=== PATIENT | male | born 1990 | race Hispanic/Latino ===

== ENCOUNTER 2016-12-22 18:50 | Emergency (ER) | payer BC ==
[2016-12-22 19:16] VITALS: BP 135/66; PULSE 74; RESP 18; TEMP 98.2; O2SAT 99
--- NOTE | 2016-12-22 20:12 | ED PDOC ---
HPI: Back Time Seen by Provider: 12/22/16 20:08 Chief Complaint (Nursing): Back Pain Chief Complaint (Provider): lower back pain History Per: Patient History/Exam Limitations: no limitations Additional Complaint(s): 26yo M in ED with hx of L5-L6 herniated disc states acutely developed pain to lower back without injury or heavy lifting. denies : numbness/tingling in LE/UE , abd pain, nausea vomiting fever chills, urinary or BM incontinence or saddle anaesthesia. states pain is sharp and 10/ Past Medical History Reviewed: Historical Data, Nursing Documentation, Vital Signs Vital Signs: Last Vital Signs Temp 98.2 F 12/22/16 19:13 Pulse 74 12/22/16 19:13 Resp 18 12/22/16 19:13 BP 135/66 12/22/16 19:13 Pulse Ox 99 12/22/16 19:13 - Medical History PMH: No Chronic Diseases - Family History Family History: States: No Known Family Hx - Home Medications Home Medications: Ambulatory Orders Medication Instructions Recorded Cyclobenzaprine [Cyclobenzaprine 10 mg PO BID #14 tab 12/22/16 HCl] Ibuprofen [Motrin] 400 mg PO Q6 #30 tab 12/22/16 - Allergies Allergies/Adverse Reactions: Allergies Allergy/AdvReac Type Severity Reaction Status Date / Time No Known Allergies Allergy Verified 12/22/16 19:13 Review of Systems ROS Statement: Except As Marked, All Systems Reviewed And Found Negative Gastrointestinal: Negative for: Abdominal Pain Musculoskeletal: Positive for: Back Pain Physical Exam - Reviewed Nursing Documentation Reviewed: Yes Vital Signs Reviewed: Yes - Physical Exam Appears: Positive for: Non-toxic, No Acute Distress, Uncomfortable Head Exam: Positive for: ATRAUMATIC, NORMAL INSPECTION, NORMOCEPHALIC Skin: Positive for: Normal Color, Warm, DRY Cardiovascular/Chest: Positive for: Regular Rate, Rhythm Respiratory: Positive for: CNT, Normal Breath Sounds Gastrointestinal/Abdominal: Positive for: Normal Exam, Bowel Sounds, Soft. Negative for: Tenderness Back: Positive for: Vertebral Tenderness (midlie L5 no swelilng no hematoma), Muscle Spasm. Negative for: L CVA Tenderness Rectal: Negative for: Deferred Extremity: Positive for: Normal ROM, Other (negative straight leg raise) Neurologic/Psych: Positive for: Alert, Oriented - Laboratory Results Urine dip results: Negative for: Leukocyte Esterase, Blood, Nitrate, Ketones, Glucose, Bilirubin, Protein - ECG O2 Sat by Pulse Oximetry: 99 - Progress ED Course And Treament: pt given torodol and valium for acute pain. Medical Decision Making Medical Decision Making: pt improved i Ed with pain control. UA is negative . pt most likely with exacerbation of herniated disc. will be d.c with flexril /motrin and advised to f.u with orthoepic and PTx Disposition - Clinical Impression Clinical Impression: Back pain - Patient ED Disposition Is Patient to be Admitted: No Counseled Patient/Family Regarding: Need For Followup, Rx Given - Disposition Disposition: Routine/Home Disposition Time: 21:38 Condition: STABLE Prescriptions: Cyclobenzaprine [Cyclobenzaprine HCl] 10 mg PO BID #14 tab Ibuprofen [Motrin] 400 mg PO Q6 #30 tab Instructions: Sciatica (ED), Lumbar Radiculopathy (ED) Forms: [facility] ED School/Work Excuse
[2016-12-22] MEDS ORDERED: diaZEpam 10 mg/2 ml Inj IM ONE (20:13)
[2016-12-22] MEDS ORDERED: diaZEpam 10 mg/2 ml Inj ONE (20:47)
== END 2016-12-22 22:08 | disposition home or self-care (01) ==
LOC: H.ER 18:50
DX: M54.5 Low back pain (principal)
CPT/HCPCS: 96372; 99282; J1885; J3360